=== PATIENT | female | born 1970 | race Caucasian/White ===

== ENCOUNTER → 2018-02-09 | Outpatient (CLI) | payer OTHER ==
--- NOTE | 2018-02-09 12:41 | Diagnostic Imaging Report ---
PROCEDURE: US THYROID COMPARISON: None. INDICATIONS:Multinodular goiter TECHNIQUE: White scale color Doppler ultrasound thyroid FINDINGS: Right lobe: 4.6 x 2.9 x 2.7 cm Left lobe: 3.4 x 1.2 x 1.5 cm Isthmus thickness: 0.2 cm Underlying parenchymal thyroid is unremarkable. Nodules: Right 3.2 x 2.7 x 2.5 cm mixed cystic and solid, isoechoic, wider than tall, lobulated margin without echogenic foci (4 points) Left superior 1.5 x 0.9 x 1.1 cm mixed cystic and solid, isoechoic, wider than tall, smooth margin without echogenic foci (2 points) Left mid 0.9 x 0.6 x 0.6 cm solid, isoechoic, wider than tall, smooth margin, without echogenic foci (3 points) Left lateral 1.1 x 0.7 x 0.8 cm mixed cystic and solid, isoechoic, wider than tall, ill-defined margins without echogenic foci (2 points) Points based on ACR TI-RADS (JACR March 2017). CONCLUSION: 1. Moderately suspicious right thyroid nodule meeting criteria for FNA. 2. 3 left thyroid nodules. None of these nodules meet FNA or followup criteria per TI-RADS guidelines. Dictated by: Prasanna Zuniga M.D. on 02/09/2018 at 12:41 Electronically approved by: Prasanna Zuniga M.D. on 02/09/2018 at 12:41
--- NOTE | 2018-02-09 12:46 | Diagnostic Imaging Report ---
Ultrasound-guided thyroid biopsy 02/09/2018 Pre-Procedure Diagnosis: Moderately suspicious right thyroid nodule Post-procedure Diagnosis:Moderately suspicious right thyroid nodule Stone Breaker: Paresh Zuniga Airworthiness Inspector: None Sedation: None. 1% lidocaine local anesthesia. Estimate blood loss: None. Blood administered: None Complications: None Implants/Grafts: None Specimen: 25-gauge needle biopsy x 4 Procedure: Informed consent was obtained and the patient positioned supine in the ultrasound suite. A timeout was performed, followed by preliminary ultrasound of the thyroid. The neck was prepped and draped in standard sterile fashion. Using real-time ultrasound guidance a 25-gauge needle was advanced into the thyroid nodule of interest. An image was stored in the electronic medical record. The sample was submitted to pathology for adequacy review. The procedure was repeated an additional 3 times, using identical technique with image capture for the medical record. At the end of the procedure a sterile dressing was applied. Findings: Moderately suspicious 3.2 cm right thyroid nodule. Impression: Successful ultrasound-guided right thyroid nodule needle biopsy. This report was generated with voice-recognition technology. Errors in oxygen plant operator can occur. Please interpret accordingly and contact a radiologist if there are any questions regarding the report. Signed by: Dr. Prasanna Zuniga M.D. on 02/09/2018 12:42 PM
--- NOTE | 2018-02-09 12:46 | Diagnostic Imaging Report ---
Ultrasound-guided thyroid biopsy 02/09/2018 Pre-Procedure Diagnosis: Moderately suspicious right thyroid nodule Post-procedure Diagnosis:Moderately suspicious right thyroid nodule Gate Guard: Paresh Zuniga Project Control Analyst: None Sedation: None. 1% lidocaine local anesthesia. Estimate blood loss: None. Blood administered: None Complications: None Implants/Grafts: None Specimen: 25-gauge needle biopsy x 4 Procedure: Informed consent was obtained and the patient positioned supine in the ultrasound suite. A timeout was performed, followed by preliminary ultrasound of the thyroid. The neck was prepped and draped in standard sterile fashion. Using real-time ultrasound guidance a 25-gauge needle was advanced into the thyroid nodule of interest. An image was stored in the electronic medical record. The sample was submitted to pathology for adequacy review. The procedure was repeated an additional 3 times, using identical technique with image capture for the medical record. At the end of the procedure a sterile dressing was applied. Findings: Moderately suspicious 3.2 cm right thyroid nodule. Impression: Successful ultrasound-guided right thyroid nodule needle biopsy. This report was generated with voice-recognition technology. Errors in ferris wheel attendant can occur. Please interpret accordingly and contact a radiologist if there are any questions regarding the report. Signed by: Dr. Prasanna Zuniga M.D. on 02/09/2018 12:42 PM
== END ==
LOC: US 09:55
PROVIDERS: ATTEND Otolaryngology
DX: E04.2 Nontoxic multinodular goiter (principal)
CPT/HCPCS: 10022; 76536; 76942; 88172; 88173

== ENCOUNTER → 2018-07-15 | Outpatient (CLI) | payer OTHER ==
--- NOTE | 2018-07-15 16:06 | Diagnostic Imaging Report ---
EXAM: Thyroid Ultrasound INDICATION: \[id number] \[id number] \S\MULTIPLE THYROID NODULES COMPARISON: Thyroid FNA 02/09/2018 TECHNIQUE: Transverse and sagittal images were obtained of the thyroid gland. FINDINGS: Thyroid gland: Size: Right lobe: 5.8 x 2.6 x 2.4 cm, enlarged in size Left lobe: 5.1 x 1.9 x 2.6 cm, Normal in size Isthmus: 0.2 cm, Normal in size Appearance: Heterogeneous echotexture without increased vascularity Masses/Nodules: Right lobe: 3.4 x 2.9 x 2.5 cm almost completely solid (2 pts) nodule in the interpolar region with smooth margin (0 pts), yzxvol-zhdp-gylk (3 pts), isoechoic (1 pt), and no calcifications (0 pts). Previously 3.2 x 2.7 x 2.5 cm. Underwent fine-needle aspiration biopsy 02/09/2018 with benign results/adenomatous nodule. TR4c (>1.5 cm), Moderately Suspicious. 0.7 x 0.5 x 0.8 cm solid (2 pts) nodule in the superior pole with smooth margin (0 pts), prvuo-jzcn-gptz (0 pts), hypoechoic (2 pts), and no calcifications (0 pts). Previously not imaged. TR4a (<1.0 cm): No follow-up. 0.4 x 0.4 x 0.6 cm solid (2 pts) nodule in the superior pole with smooth margin (0 pts), fanhr-iayh-gjte (0 pts), hyperechoic (1 pt), and no calcifications (0 pts). Previously not imaged. TR3a (<1.5 cm): No follow-up. Left lobe: 1.2 x 1.7 x 1.0 cm solid (2 pts) nodule in the superior pole with smooth margin (0 pts), bymgr-mdky-nnoq (0 pts), hypoechoic (2 pts), and no calcifications (0 pts). Previously 1.5 x 0.9 x 1.1 cm. TR4c (>1.5 cm), Moderately Suspicious: FNA. 0.7 x 1.0 x 0.7 cm solid (2 pts) nodule in the interpolar region with smooth margin (0 pts), lozlw-apyj-vbxs (0 pts), hypoechoic (2 pts), and no calcifications (0 pts). Previously 0.9 x 0.6 x 0.6 cm. TR4b (1.0-1.5 cm), Moderately Suspicious: Follow at 1, 2, 3, 5 years. 1.2 x 0.7 x 0.9 cm almost completely solid (2 pts) nodule in the interpolar region with smooth margin (0 pts), hxflr-lksy-appb (0 pts), isoechoic (1 pt), and no calcifications (0 pts). Previously 1.1 x 0.7 x 0.8 cm. TR3a (<1.5 cm): No follow-up. Parathyroid: No focal parathyroid masses. No adenopathy. IMPRESSION: 1. Mild enlargement of the right thyroid lobe. Left thyroid lobe and isthmus are normal in size. 2. Relatively stable 3.4 cm nodule in the right thyroid lobe, biopsy proven benign 02/09/2018. 3. Slight interval increase in size of 1.7 cm solid nodule in the superior pole of the left lobe, for which fine-needle aspiration is recommended. TR4c (>1.5 cm), Moderately Suspicious: FNA. 4. 1.0 cm solid hypoechoic nodule in the interpolar left kidney, for which thyroid ultrasound follow-up is recommended in 12 months.TR4b (1.0-1.5 cm), Moderately Suspicious: Follow at 1, 2, 3, 5 years. 5. Other nodules require no further follow-up. TI-RADS Lexicon: TR1, Benign: No FNA TR2, Not Suspicious: No FNA. TR3a (<1.5 cm): No follow-up. TR3b (1.5-2.5 cm), Mildly Suspicious: Follow at 1, 3, 5 years. TR3c (>2.5 cm), Mildly Suspicious: FNA. TR4a (<1.0 cm): No follow-up. TR4b (1.0-1.5 cm), Moderately Suspicious: Follow at 1, 2, 3, 5 years. TR4c (>1.5 cm), Moderately Suspicious: FNA. TR5a (<0.5 cm): No follow-up. TR5b (0.5-1.0 cm), Highly Suspicious: Follow at 1, 2, 3, 4, 5 years. TR5c (>1.0 cm), Highly Suspicious: FNA. *Rebiopsy if new suspicious features *No recommendation at this time for significant interval growth. Nodule Characteristics: * Benign features: cystic, hyperechoic, comet-tail artifact, complete halo * Minor suspicious features: solid, hypoechoic, other calcifications * Major suspicious features: microcalcifications, marked hypoechoic (less than strap muscle), suspicious lymph nodes, taller than wide, lobulated or ill-defined margins. Literature: ACR Thyroid Imaging, Reporting and Data System (TI-RADS): White Paper of the ACR TI-RADS Committee. J Am Gabo Radiol 2017. Signed by: Dr. Devin Nguyen M.D. on 07/15/2018 4:02 PM
== END ==
LOC: MAMMO 13:48
PROVIDERS: ATTEND Otolaryngology
DX: Z12.31 Encounter for screening mammogram for malignant neoplasm of breast (principal); E04.2 Nontoxic multinodular goiter
CPT/HCPCS: 76536; 77067

== ENCOUNTER → 2018-08-12 | Outpatient (CLI) | payer OTHER ==
--- NOTE | 2018-08-12 12:30 | Diagnostic Imaging Report ---
Ultrasound-guided left thyroid nodule fine needle aspiration Pre-Procedure Diagnosis: Left superior thyroid nodule Post-procedure Diagnosis:Left superior thyroid nodule Marketing Performance Analyst: Steven Triplett MD Sedation: 1% lidocaine local anesthesia. Estimate blood loss: None. Complications: None Implants/Grafts: None Specimen: 25-gauge needle biopsy x 5 Procedure/Findings: Informed consent was obtained and the patient positioned supine in the ultrasound suite. A timeout was performed, followed by preliminary ultrasound of the thyroid. The neck was prepped and draped in standard sterile fashion. Using real-time ultrasound guidance a 25-gauge needle was advanced into the left upper pole thyroid nodule. An image was stored in the electronic medical record. The sample was submitted to pathology for adequacy review. The procedure was repeated an additional five times, using identical technique with image capture for the medical record. At the end of the procedure a sterile dressing was applied. Impression: Ultrasound guided fine needle aspiration of left superior pole thyroid nodule. Signed by: Dr. Steven Triplett MD on 08/12/2018 12:26 PM
== END ==
LOC: US 10:24
PROVIDERS: ATTEND Otolaryngology
DX: E04.2 Nontoxic multinodular goiter (principal)
CPT/HCPCS: 10022; 76942; 88112; 88172; 88173; 88305